=== PATIENT | female | born 1985 | race Caucasian/White ===

== ENCOUNTER 2018-07-11 17:49 | Inpatient (IN) | payer OTHER ==
[~2018-07-11] VITALS: Ht 167.6 cm; Wt 83.5 kg
[2018-07-11 18:34] LABS: GLUCOMETER DEV NAME(LOC) 4S 8; GLUCOSE,POINT OF CARE 168 MG/DL (70-110)
[2018-07-11] MEDS ORDERED: RINGERS SOLUTION,LACTATED 1,000 ML IV ONE (18:39)
[2018-07-11] MEDS ORDERED: RINGERS SOLUTION,LACTATED 1,000 ML IV PRN (18:41)
[2018-07-11] MEDS ORDERED: OXYTOCIN 30 UNITS/LACT RINGERS 500 ML IV ONE (18:41)
[2018-07-11] MEDS ORDERED: OXYTOCIN 30 UNITS/LACT RINGERS 500 ML IV PRN (18:41)
[2018-07-11] MEDS ORDERED: METHYLERGONOVINE MALEATE 0.2 MG/ML VIAL IM PRN (18:45)
[2018-07-11] MEDS ORDERED: LIDOCAINE HCL/PF 1% 30 ML VIAL INJ PRN (18:45)
[2018-07-11] MEDS ORDERED: PNV11TAB PO (18:45)
[2018-07-11] MEDS ORDERED: CITRIC ACID/SODIUM CITRATE 30 ML SOLUTION UDCUP PO PRN (18:45)
[2018-07-11] MEDS ORDERED: METOCLOPRAMIDE HCL 5 MG/ML 2 ML VIAL IVP PRN (18:45)
[2018-07-11 18:47] VITALS: BP 110/78
[2018-07-11 19:35] LABS: BASOPHILS % (AUTO) 0.3 % (0.0-2.0); EOSINOPHILS % (AUTO) 0.4 % (1.0-6.0); HEMATOCRIT 38.6 % (36-46); HEMOGLOBIN 13.3 g/dL (12.0-16.0); LYMPHOCYTES # (AUTO) 1.5 K/uL (1.0-4.8); LYMPHOCYTES % (AUTO) 17.8 % (22.0-44.0); MEAN CORPUSCULAR HEMOGLOBIN 30.8 pg (26.0-34.0); MEAN CORPUSCULAR HGB CONC 34.4 G/dL (31.0-37.0); MEAN CORPUSCULAR VOLUME 90 fL (80-100); MONOCYTES # (AUTO) 0.7 K/uL (0.1-1.0); MONOCYTES % (AUTO) 8.5 % (2.0-9.0); NEUTROPHILS # (AUTO) 6.4 K/uL (1.8-7.7); PLATELET COUNT (AUTO)-OB 215 K/uL (150-450); RED BLOOD CELL COUNT(AUTO) 4.31 MIL/uL (4.00-5.20); RED CELL DISTRIBUTION WIDTH 13.8 % (11.5-14.5)
[2018-07-11] MEDS ORDERED: OXYGEN THERAPY IH SCH (20:00)
[2018-07-11] MEDS: FentaNYL CITRATE-PF 100 MCG/2 ML VIAL IVP PRN ×4 (21:46→23:36)
[2018-07-12] MEDS: FentaNYL CITRATE-PF 100 MCG/2 ML VIAL IVP PRN ×2 (00:33→00:39)
[2018-07-12] MEDS ORDERED: ROPIVACAINE HCL/PF 0.2% 100 ML ED ONE ×2 (00:55→07:41)
[2018-07-12] MEDS: RINGERS SOLUTION,LACTATED 1,000 ML IV SCH ×4 (01:02→14:07)
[2018-07-12] MEDS ORDERED: ROPIVACAINE HCL/PF 0.2% 100 ML ED PRN (08:15)
[2018-07-12] MEDS ORDERED: ONDANSETRON HCL 4 MG/2 ML VIAL IVP PRN (10:15)
[2018-07-12] MEDS ORDERED: RINGERS SOLUTION,LACTATED 1,000 ML IV ONE (14:05)
[2018-07-12] MEDS ORDERED: GLYCERIN/WITCH HAZEL LEAF 40 PADS JAR TP PRN (14:15)
[2018-07-12] MEDS ORDERED: OxyCODONE HCL/ACETAMINOPHEN 5-325 MG TABLET PO PRN ×2 (14:15)
[2018-07-12] MEDS ORDERED: BENZOCAINE 20%/MENTHOL 56 GM SPRAY CANISTER TP PRN (14:15)
[2018-07-12] MEDS ORDERED: LANOLIN 7 GM OINTMENT TP PRN (14:15)
[2018-07-12] MEDS ORDERED: MEASLES/MUMPS/RUBELLA VACCINE, LIVE 0.5 ML/VIAL SQ ONE (14:15)
[2018-07-12] MEDS: IBUPROFEN 600 MG TABLET PO PRN ×2 (15:44→21:16)
[2018-07-12] MEDS ORDERED: MAGNESIUM HYDROXIDE SUSPENSION 30 ML UDCUP PO SCH (21:00)
[2018-07-13] MEDS: IBUPROFEN 600 MG TABLET PO PRN (03:04)
[2018-07-13] MEDS ORDERED: IBUP-2071 PO (09:32)
[2018-07-13] MEDS ORDERED: DOCU250C91 PO (09:35)
[2018-07-13] MEDS ORDERED: DSS100 PO (09:35)
== END 2018-07-13 14:15 | disposition home or self-care (01) | DRG 775 ==
LOC: OBSVTOIN 17:49 → 4S 17:49
PROVIDERS: ADMIT Obstetrics & Gynecology; ATTEND Obstetrics & Gynecology
PROC: 10E0XZZ Delivery of Products of Conception, External Approach (ICD-10-PCS; principal; 2018-07-12)
PROC: 3E0R3BZ Introduction of Anesthetic Agent into Spinal Canal, Percutaneous Approach (ICD-10-PCS; 2018-07-12)
PROC: 00HU33Z Insertion of Infusion Device into Spinal Canal, Percutaneous Approach (ICD-10-PCS; 2018-07-12)
PROC: 0W8NXZZ Division of Female Perineum, External Approach (ICD-10-PCS; 2018-07-12)
DX: O42.92 Full-term premature rupture of membranes, unspecified as to length of time between rupture and onset of labor (principal); O76 Abnormality in fetal heart rate and rhythm complicating labor and delivery; Z3A.39 39 weeks gestation of pregnancy; Z37.0 Single live birth
CPT/HCPCS: 86850; 86900; 86901; 89060; J2590; J2795; J3010; J7120